=== PATIENT | female | born 1940 | race Caucasian/White ===

== ENCOUNTER 2023-06-10 17:06 | Inpatient (IN) | payer MEDICARE ==
[~2023-06-10] VITALS: Ht 162.6 cm; Wt 59.4 kg
[2023-06-10] MEDS: BLOOD SUGAR DIAGNOSTIC 1 EACH STRIP IN ONE (21:00)
[2023-06-10] MEDS ORDERED: MAGNESIUM HYDROXIDE 30 ML UDC PO PRN (21:00)
[2023-06-10] MEDS ORDERED: MAG HYDROX/AL HYDROX/SIMETH 30 ML UDC PO PRN (21:00)
[2023-06-10 22:41] VITALS: BP 118/60; TEMP 98.4; O2SAT 95
[2023-06-10] MEDS: TEMAZEPAM 7.5 MG CAPSULE PO PRN (23:47)
[2023-06-11] MEDS ORDERED: VIT1CAPS9 PO (01:04)
[2023-06-11] MEDS ORDERED: MULT-1160 PO (01:04)
[2023-06-11] MEDS ORDERED: LEVO100T9 PO (01:04)
[2023-06-11] MEDS ORDERED: AMLO-212 PO (01:04)
[2023-06-11] MEDS ORDERED: METO100T14 PO (01:04)
[2023-06-11] MEDS ORDERED: ESZO3TAB27 PO (01:04)
[2023-06-11] MEDS ORDERED: TRAZ-182 PO (01:04)
[2023-06-11] MEDS ORDERED: Z GUARD REMEDY 4 OZ OINT TP PRN (03:00)
[2023-06-11 07:37] LABS: CREATININE 0.7 mg/dL (0.6-1.3)
[2023-06-11 07:42] LABS: ALBUMIN 4.1 g/dL (3.4-5.0); BILIRUBIN,TOTAL 0.7 mg/dL (0.2-1.0); CALCIUM, SERUM 9.5 mg/dL (8.5-10.1); CREATININE 0.7 mg/dL (0.6-1.3); POTASSIUM 3.3 mmol/L (3.5-5.1); TOTAL PROTEIN, SERUM 7.7 g/dL (6.4-8.2)
[2023-06-11 07:45] LABS: CHOLESTEROL 203 mg/dL (<200); HDL CHOLESTEROL 61 mg/dL (40-60); LDL 99 mg/dL (0-99); TRIGLYCERIDES 177 mg/dL (30-150)
[2023-06-11] MEDS ORDERED: METO-358 PO (07:55)
[2023-06-11 08:00] VITALS: BP 122/86; TEMP 98.7; O2SAT 97
[2023-06-11] MEDS: clonazePAM 0.5 MG TABLET PO PRN (09:17)
[2023-06-11 11:11] LABS: BASOPHILS # (AUTO) 0.1 K/uL (0.0-0.2); BASOPHILS % (AUTO) 0.9 % (0.0-2.0); EOSINOPHILS # (AUTO) 0.1 K/uL (0.0-0.7); EOSINOPHILS % (AUTO) 0.6 % (0.0-6.0); HEMATOCRIT 43 % (33-45); HEMOGLOBIN 14.5 g/dL (11.5-14.8); LYMPHOCYTES # (AUTO) 1.8 K/uL (0.8-4.8); LYMPHOCYTES % (AUTO) 21.7 % (20.0-44.0); MEAN CORPUSCULAR HEMOGLOBIN 30 PG (26.0-33.0); MEAN CORPUSCULAR HGB CONC 34 g/dl (31.0-36.0); MEAN CORPUSCULAR VOLUME 87 fL (82-100); MONOCYTES # (AUTO) 0.7 K/uL (0.1-1.30); MONOCYTES % (AUTO) 8.7 % (2.0-12.0); NEUTROPHILS # (AUTO) 5.8 K/uL (1.8-8.9); NEUTROPHILS % (AUTO) 68.1 % (43.0-81.0); PLATELET COUNT (AUTO) 360 K/uL (150-450); RED BLOOD CELL COUNT(AUTO) 4.91 MIL/uL (4.0-5.2); RED CELL DISTRIBUTION WIDTH 14.8 % (11.5-15.0); WHITE BLOOD COUNT (AUTO) 8.5 K/uL (4.3-11.0)
[2023-06-11] MEDS ORDERED: ESZOPICLONE PO PRN (11:30)
[2023-06-11] MEDS: POTASSIUM CHLORIDE 20 MEQ TAB.PRT.SR PO ONE (12:18)
[2023-06-11] MEDS: ESCITALOPRAM OXALATE (10 MG) 10 MG TABLET PO SCH (12:51)
[2023-06-11] MEDS: OLANZAPINE ZYDIS 5 MG TAB.RAPDIS PO SCH (16:59)
[2023-06-11] MEDS ORDERED: Medication Not On Formulary EA (Vit A/Vit C/Vit E/Zinc/Copper (Preservision Areds Softge PO SCH (17:00)
[2023-06-11 20:36] VITALS: BP 119/79; TEMP 98.6; O2SAT 97
[2023-06-12] MEDS: LEVOTHYROXINE SODIUM 100 MCG TABLET PO SCH (07:31)
[2023-06-12 08:00] VITALS: BP 122/79; TEMP 97.8; O2SAT 95
[2023-06-12] MEDS: AMLODIPINE BESYLATE 5 MG TABLET PO SCH (08:27)
[2023-06-12] MEDS: METOPROLOL SUCCINATE 50 MG TAB.SR.24H PO SCH (08:28)
[2023-06-12 16:00] VITALS: BP 101/73; TEMP 98.5; O2SAT 96
[2023-06-12 20:00] VITALS: BP 96/58; TEMP 98.5; O2SAT 96
[2023-06-13 08:00] VITALS: BP 122/73; TEMP 97.5; O2SAT 98
[2023-06-13 16:00] VITALS: BP 123/84; TEMP 97.9; O2SAT 98
[2023-06-13 20:00] VITALS: BP 128/69; TEMP 97.6; O2SAT 99
[2023-06-14 08:00] VITALS: BP 139/86; TEMP 97.8; O2SAT 94
[2023-06-14] MEDS: ACETAMINOPHEN 325 MG TABLET PO PRN (13:11)
[2023-06-14 16:00] VITALS: BP 91/66; TEMP 98; O2SAT 96
[2023-06-14 17:21] VITALS: BP 110/56; TEMP 98; O2SAT 96
[2023-06-14 20:52] VITALS: BP 101/51; TEMP 97.7; O2SAT 100
[2023-06-14 22:00] VITALS: BP 101/51; TEMP 97.7; O2SAT 100
[2023-06-15 08:00] VITALS: BP 124/92; TEMP 97.4; O2SAT 95
[2023-06-16 08:00] VITALS: BP 100/60; TEMP 98.7; O2SAT 98
[2023-06-16 16:00] VITALS: BP 101/51; TEMP 98.7; O2SAT 96
[2023-06-16 21:00] VITALS: BP 102/57; TEMP 98.4; O2SAT 97
[2023-06-17 08:00] VITALS: BP 104/55; TEMP 98.1; O2SAT 98
[2023-06-17] MEDS: ESCITALOPRAM OXALATE (10 MG) 10 MG TABLET PO SCH (09:00)
[2023-06-17 16:00] VITALS: BP 102/82; TEMP 97.7; O2SAT 97
[2023-06-17 20:47] VITALS: BP 121/83; TEMP 98; O2SAT 100
[2023-06-18 08:00] VITALS: BP 142/77; TEMP 98.6; O2SAT 98
[2023-06-18 16:00] VITALS: BP 105/70; TEMP 98.7; O2SAT 99
[2023-06-18 20:31] VITALS: BP 110/75; TEMP 98.2; O2SAT 99
[2023-06-19 08:00] VITALS: BP 125/62; TEMP 97.8; O2SAT 99
[2023-06-19 16:00] VITALS: BP 99/64; TEMP 98; O2SAT 100
[2023-06-19 20:00] VITALS: BP 131/71; TEMP 97.9; O2SAT 98
[2023-06-20 08:00] VITALS: BP 99/65; TEMP 97.7; O2SAT 98
[2023-06-20 16:00] VITALS: BP 116/74; TEMP 97.8; O2SAT 100
[2023-06-21 08:00] VITALS: BP 114/61; TEMP 97.6; O2SAT 98
[2023-06-21 16:00] VITALS: BP 119/69; TEMP 97.6; O2SAT 99
[2023-06-21 20:00] VITALS: BP 118/74; TEMP 97.6; O2SAT 97
[2023-06-22 08:00] VITALS: BP 112/83; TEMP 97.6; O2SAT 94
[2023-06-22 16:00] VITALS: BP 117/69; TEMP 98; O2SAT 97
[2023-06-22 20:24] VITALS: BP 124/76; TEMP 97.6; O2SAT 96
[2023-06-23 08:00] VITALS: BP 108/58; TEMP 98.6; O2SAT 99
[2023-06-23 08:13] VITALS: BP 108/58
== END 2023-06-23 13:02 | DRG 885 ==
LOC: GPS 20:24
PROVIDERS: ADMIT Psychiatry & Neurology Psychiatry; ATTEND Internal Medicine
DX: F29 Unspecified psychosis not due to a substance or known physiological condition (principal); F33.2 Major depressive disorder, recurrent severe without psychotic features; R45.851 Suicidal ideations; F02.82 Dementia in other diseases classified elsewhere, unspecified severity, with psychotic disturbance; F02.83 Dementia in other diseases classified elsewhere, unspecified severity, with mood disturbance; F02.84 Dementia in other diseases classified elsewhere, unspecified severity, with anxiety; F41.9 Anxiety disorder, unspecified; I10 Essential (primary) hypertension; E03.9 Hypothyroidism, unspecified; E87.6 Hypokalemia; G30.9 Alzheimer's disease, unspecified; F39 Unspecified mood [affective] disorder; Z20.822 Contact with and (suspected) exposure to COVID-19
CPT/HCPCS: 36415; 80053-TC; 80061-TC; 82565-TC; 82962-TC; 84443-TC; 85025-TC; 87081-TC; 97110-TC; 97112-TC; 97116-TC